=== PATIENT | male | born 1990 | race Caucasian/White ===

== ENCOUNTER 2017-03-22 10:39 | Emergency (ER) | payer OTHER ==
[2017-03-22 10:58] VITALS: BP 125/97
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
[2017-03-22] MEDS ORDERED: HYDROmorphone 1 MG/ML Syringe IM ONE (11:30)
[2017-03-22] MEDS ORDERED: Metoclopramide 10 MG/2 ML SDV IM ONE (11:30)
--- NOTE | 2017-03-22 12:22 | CT ---
Head CT Technique: Multiple axial sections through the brain were obtained. Intravenous contrast was not utilized. Comparison: No previous study. Findings: Ventricles along with basal cisterns and sulci over convexities are within normal limits for the patient's age. No abnormal parenchymal densities are seen. No evidence of intracranial hemorrhage. No midline shift or mass effect is seen. Bone window settings were reviewed which shows the visualized sinuses to appear clear. No acute calvarial abnormality is identified. Impression: 1. No abnormality is identified on noncontrast head CT exam. Diagnostic code #1
--- NOTE | 2017-03-22 12:25 | CT ---
CT cervical spine Technique: Multiple axial sections were obtained from above C1 inferiorly to the top of T2. Reconstructed sagittal and coronal images were reviewed. Comparison: No previous cervical spine imaging. Findings: Mild mucosal thickening is seen inferiorly within the left maxillary sinus. Mastoid sinuses and middle ear cavities are clear. Posterior skull base is intact. Vertebral body heights and disc spaces are maintained. Vertebral bodies and posterior arches are intact with no fracture being seen. No bony central or bony neural foraminal stenosis is seen. Mild scoliosis is seen. Impression: 1. Mild scoliosis. 2. Nothing acute is appreciated on CT study of the cervical spine. Diagnostic code #2
== END 2017-03-22 12:53 | disposition home or self-care (01) ==
LOC: JD.ED 10:39
DX: S06.0X1D Concussion with loss of consciousness of 30 minutes or less, subsequent encounter (principal); S16.1XXD Strain of muscle, fascia and tendon at neck level, subsequent encounter; M62.838 Other muscle spasm; V69 Occupant of heavy transport vehicle injured in other and unspecified transport accidents
CPT/HCPCS: 70450; 72125; 96372; 99284; J1170; J2765; 99283

== ENCOUNTER 2018-03-20 10:09 | Emergency (ER) | payer OTHER ==
[2018-03-20] MEDS ORDERED: Diphtheria,Pertussis(Acell),Tetanus Vaccine 0.5 ML SDV IM ONE (10:20)
[2018-03-20 10:21] VITALS: BP 151/89
[2018-03-20] MEDS ORDERED: Lidocaine 1% with EPINEPHrine 1:100,000 20 ML MDV INJECT ONE (10:22)
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
[2018-03-20] MEDS ORDERED: Lidocaine/EPINEPHrine/Tetracaine Soln 1 ML TOP ONE (10:28)
[2018-03-20] MEDS ORDERED: Ondansetron 4 MG Tab.DIS PO ONE (10:44)
--- NOTE | 2018-03-22 10:58 | CR ---
Left foot: Two portable views of the left foot were obtained. Comparison: No prior foot exam. No fracture, dislocation or other bony abnormality is seen. No opaque foreign object is identified. Soft tissue injury is seen within the heel. Impression: 1. Soft tissue injury within the heel. 2. No opaque foreign body or acute bony abnormality is seen. Diagnostic code #2
== END 2018-03-20 11:50 | disposition home or self-care (01) ==
LOC: JD.ED 10:09
DX: S41.111A Laceration without foreign body of right upper arm, initial encounter (principal); S91.312A Laceration without foreign body, left foot, initial encounter; F17.210 Nicotine dependence, cigarettes, uncomplicated; F41.9 Anxiety disorder, unspecified; Z23 Encounter for immunization; W25.XXXA Contact with sharp glass, initial encounter
CPT/HCPCS: 12004; 73620; 90471; 90715; 99283; A9270

== ENCOUNTER 2018-03-24 22:29 | Emergency (ER) | payer OTHER ==
--- NOTE | 2018-03-24 22:37 | EDM.PDOC ---
ED HPI GENERAL MEDICAL PROBLEM - General Chief Complaint: Lower Extremity Injury/Pain Stated Complaint: LEFT FOOT POSSIBLE INFECTION Time Seen by Provider: 03/24/18 22:36 - History of Present Illness INITIAL COMMENTS - FREE TEXT/NARRATIVE: 27-year-old male presents emergency room with worsening right foot pain. patient had suture repair done on his left heel Sunday. This was done after getting a cut Sunday night on a piece of glass. He's had increased swelling and redness to the area along with increased discharge yesterday he was seen at the [facility] in [place] started on Augmentin. Sensitivities developed stomach upset and diarrhea and his foot continues to get worse. Now he has excruciating pain when tries to bear weight on this area. Left Feet Pain Score (Numeric/FACES): 5 - Related Data Allergies Allergy/AdvReac Type Severity Reaction Status Date / Time No Known Allergies Allergy Verified 03/20/18 10:21 Home Meds: Home Meds Amoxicillin/Potassium Clav [Augmentin 875-125 Tablet] 1 tab PO BID 03/24/18 [ History] Clindamycin HCl 300 mg PO Q8H #30 capsule 03/25/18 [Rx] Past Medical History Cardiovascular History: Reports: Hypertension Respiratory History: Reports: Asthma Other Respiratory History: grew out of asthma Gastrointestinal History: Reports: Inflammatory Bowel Disease Musculoskeletal History: Reports: Fracture Neurological History: Reports: Concussion Psychiatric History: Reports: Anxiety - Past Surgical History HEENT Surgical History: Reports: Adenoidectomy, Myringotomy w Tube(s) Male Surgical History: Reports: Vasectomy Musculoskeletal Surgical History: Reports: Other (See Below) Other Musculoskeletal Surgeries/Procedures:: hand surgery Social & Family History - Family History Family Medical History: Noncontributory - Caffeine Use Caffeine Use: Reports: Soda Other Caffeine Use: daily Review of Systems - Review of Systems Review Of Systems: See Below Constitutional: Reports: No Symptoms Ears: Reports: No Symptoms Nose: Reports: No Symptoms Mouth/Throat: Reports: No Symptoms Respiratory: Reports: No Symptoms Cardiovascular: Reports: No Symptoms ED EXAM, GENERAL - Physical Exam Exam: See Below Exam Limited By: No Limitations General Appearance: Alert, No Apparent Distress Respiratory/Chest: No Respiratory Distress, Lungs Clear, Normal Breath Sounds Cardiovascular: Regular Rate, Rhythm, No Edema, No Murmur Extremities: Other (Examination of the plantar aspect of his left heel shows a sutured laceration really nice wound approximation unfortunately skin some drainage out of the lateral component of this 5 total stitches are identified the second one from the lateral and is removed as this is where the drainage is coming from much more drainage came out a second stitch was removed this was the second one from the medial margin no significant drainage was removed from the middle stitch appears to be in really good approximation with no surrounding drainage and minimal erythema) ED TRAUMA EXTREMITY PROCEDURES - I&D Site: Left heel plantar surface Skin Prep: Saline Drainage: Purulent, Bloody, Small Amount Packed With: 1/4 in. Iodoform Sterile Dressinx4(s) Complications: No Complication Description: 2 sutures were removed the second one from the medial aspect the second one from the lateral aspect most drainage was from the lateral aspect these were packed with iodoform gauze bulky dressing applied Course - Vital Signs Last Recorded V/S: Last Vital Signs Temp 36.9 C 03/24/18 23:05 Pulse 70 03/24/18 23:05 Resp 20 03/24/18 23:05 BP 121/77 03/24/18 23:05 Pulse Ox 98 03/24/18 23:05 - Orders/Labs/Meds Orders: Active Orders 24 hr Category Date Time Status Foot Comp Min 3V Lt [CR] Stat Exams 03/24/18 22:55 Taken CULTURE WOUND [RM] Stat Lab 03/24/18 22:40 Received Meds: Medications Discontinued Medications Generic Name Dose Route Start Last Admin Trade Name Kulwinder PRN Reason Stop Dose Admin Hydrocodone Bitart/Acetaminophen 1 tab 03/24/18 22:55 03/24/18 23:03 Cobalt 325-5 Mg PO 03/24/18 22:56 1 tab ONETIME ONE Administration Clindamycin HCl 450 mg 03/24/18 23:05 03/24/18 23:09 Cleocin PO 03/24/18 23:06 450 mg ONETIME ONE Administration - Re-Assessments/Exams Free Text/Narrative Re-Assessment/Exam: 03/25/18 00:15 X-ray unremarkable Departure - Departure Time of Disposition: 00:16 Disposition: Left Without Being Seen 07 Clinical Impression: Infected laceration, Laceration of right foot - Discharge Information Prescriptions: Clindamycin HCl 300 mg PO Q8H #30 capsule Referrals: PCP,None [Primary Care Provider] - Forms: ED Department Discharge Additional Instructions: Return to emergency room with any questions problems worsening symptoms. Follow-up in the Hospital clinic on Sunday for recheck. [phone] Stop the Augmentin Start the clindamycin 300 mg 3 times a day You have been given a prescription for hydrocodone from machine in the waiting room take one or 2 every 6 hours as needed. Allow 12 hours after using this medication before driving or returning to work. Rest this foot. Keep it elevated as much as tolerable. Do dressing changes on it twice daily starting tomorrow - My Orders Last 24 Hours: My Active Orders 03/24/18 22:40 CULTURE WOUND [RM] Stat 03/24/18 22:55 Foot Comp Min 3V Lt [CR] Stat - Assessment/Plan Last 24 Hours: My Active Orders 03/24/18 22:40 CULTURE WOUND [RM] Stat 03/24/18 22:55 Foot Comp Min 3V Lt [CR] Stat
[2018-03-24] MEDS ORDERED: Acetaminophen/HYDROcodone 325-5 MG Tab PO ONE (22:55)
[2018-03-24] MEDS ORDERED: Clindamycin HCl 150 MG Cap PO ONE (23:05)
[2018-03-24 23:06] VITALS: BP 121/77
--- NOTE | 2018-03-25 15:28 | CR ---
Left foot: Four views of the left foot were obtained. No fracture, dislocation or other bony abnormality is seen. Impression: 1. No abnormality is identified on left foot exam. Diagnostic code #1
== END 2018-03-25 00:27 | disposition home or self-care (01) ==
LOC: JD.ED 22:29
DX: S91.312A Laceration without foreign body, left foot, initial encounter (principal); X58.XXXA Exposure to other specified factors, initial encounter
CPT/HCPCS: 73630; 87070; 99284; A9270; 10061; 99283-25